=== PATIENT | male | born 1985 | race Caucasian/White ===

== ENCOUNTER 2023-10-04 14:00 | Outpatient (RCR) | payer OTHER, SELFPAY ==
--- NOTE | 2023-08-16 14:53 | MHC.PT.EP ---
[facility] [place] [facility] [place] [facility] [place] [facility] [address] [phone] F: [phone] F: [phone] F: [phone] F: [phone] Physical Therapy Plan of Care Date of Evaluation: 08/16/23 Date of Surgery: Diagnosis: Pain in R shoulder Assessment: Patient is a 38 year old R handed male who presents with s/s consistent with R shoulder pain. 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 Patient past medical history includes broken collarbone. Current impairments include pain, posture, ROM, strength, activity tolerance and functional mobility. Functional limitations include decreased ability to lift, sleep, push, pull, dress, wash back, and reach overhead. Patient is motivated with good rehab potential. Skilled PT will address impairments and functional limitations in order to achieve goals. Frequency and Duration: The patient will be seen 2x/week for 5 weeks Short Term Goals: I with HEP -2 weeks AROM flexion and scaption 120 - 3 weeks ER AROM 55, IR 55 - 3 weeks Cumulative Effects Analyst Goals: Strength 4+/5 grossly - 5 weeks AROM WNL and pain free - 5 weeks SPADI 20/130 or better - 5 weeks Pain free sleeping - 5 weeks Restore all work related activities pain free - 5 weeks Treatment Plan: Modalities to reduce pain, spasms and effusion. Manual therapy to restore motion and function. Therapeutic exercise to improve strength and flexibility. Neuromuscular re-education for posture and balance. Therapeutic activities to return to functional activities of daily living. Electronically signed by: Akil Resendiz, PT Please sign and return to therapist. Thank you for your referral.
--- NOTE | 2024-07-18 07:43 | MHC.PT.DC ---
[facility] [place] Office [place] Office [place] Office [address] [phone] F: [phone] F: [phone] F: [phone] F: [phone] Physical Therapy Discharge Report Diagnosis: Pain in R shoulder Date of Surgery: Date of Evaluation: 08/16/23 Date of Discharge: 11/21/23 Treatments to Date: 4 Cancellations to Date: No Shows to Date: Discharge Status: Patient Elected to Stop Discharge Summary: 10/04/23: pt has been have a difficult time keeping up with HEP.. we discussed this and educated on anatomy and health of joint, importance of movement. 09/13/23: pt has been having difficulty making appts due to work schedule. working on HEP. we corrected form often today as pt has significant compensatory patterns.. 08/22/23: pt progressing well with skilled PT for shoulder. added stretching and post cuff/scap strength today. no adverse reactions. Patient is a 38 year old R handed male who presents with s/s consistent with R shoulder pain. 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 Patient past medical history includes broken collarbone. Current impairments include pain, posture, ROM, strength, activity tolerance and functional mobility. Functional limitations include decreased ability to lift, sleep, push, pull, dress, wash back, and reach overhead. Patient is motivated with good rehab potential. Skilled PT will address impairments and functional limitations in order to achieve goals. Electronically signed by: Akil Resendiz, PT Please sign and return to therapist. Thank you for your referral.
== END 2024-07-18 07:44 | disposition home or self-care (01) ==
LOC: HO.PTCHIC 14:00
PROVIDERS: PCP Internal Medicine; Visit Provider Internal Medicine
DX: M25.511 Pain in right shoulder (principal)
CPT/HCPCS: 97110; 97140; 97161